=== PATIENT | female | born 1995 | race Caucasian/White ===

== ENCOUNTER 2016-07-14 16:07 | Emergency (ER) | payer MEDICAID ==
[2016-07-14 16:37] LABS: BILIRUBIN,URINE NEGATIVE (NEGATIVE); PH,URINE 6.5 PH (5.0-7.5)
[2016-07-14 16:41] LABS: UA w/ MICROSCOPIC CHARGE YES
[2016-07-14 16:44] LABS: UR CULTURE IF IND INDICATED
--- NOTE | 2016-07-14 17:16 | ED Physician Documentation ---
History of Present Illness - Stated complaint Stated Complaint: FEMALE - Chief complaint Chief Complaint: General - Additonal information Additional information: hx from pt 21 f not preg LMP now dysuria no dc mild ext [place]chig some low back pain below CVA region NV yesterday no fever Review of Systems Constitutional: denies: Fever GI: reports: Abdominal Pain, Nausea, Vomiting : reports: Dysuria, LMP (now). denies: Now EGA Immunocompromised: denies: Immunocompromised PD PAST MEDICAL HISTORY - Past Surgical History Past Surgical History: No - Present Medications Home Medications: Ambulatory Orders Medication Instructions Recorded Confirmed Cephalexin [Keflex] 500 mg PO Q6H #28 capsule 07/14/16 Phenazopyridine [Pyridium] 100 mg PO Q8H PRN #9 tablet 07/14/16 - Allergies Allergies/Adverse Reactions: Allergies Allergy/AdvReac Type Severity Reaction Status Date / Time codeine Allergy Hives Verified 07/14/16 16:30 - Social History Does the pt smoke?: No Smoking Status: Never smoker Does the pt drink ETOH?: No Does the pt have substance abuse?: No - Immunizations Immunizations are current?: Yes - POLST Patient has POLST: No PD ED PE NORMAL - Vitals Vital signs reviewed: Yes - Cardiac Cardiac: RRR - Respiratory Respiratory: No respiratory distress, Clear bilaterally - Abdomen Abdomen: Soft, Other (low abd TTP suprapubic and LLQ more than RLQ no rebound or guarding) - Female Female : Other (external - no yeast) - Back Back: No CVA TTP Results - Vitals Vitals: Vital Signs - 24 hr 07/14/16 16:15 Temperature 36.8 C Heart Rate 66 Respiratory 16 Rate Blood Pressure 130/67 O2 Saturation 96 Oxygen O2 Source Room air - Labs Labs: Laboratory Tests 07/14/16 16:20 Urine Color STRAW Urine Clarity CLEAR Urine pH 6.5 Ur Specific [place] <=1.005 Urine Protein NEGATIVE Urine Glucose (UA) NEGATIVE Urine Ketones NEGATIVE Urine Occult Blood MODERATE H Urine Nitrite NEGATIVE Urine Bilirubin NEGATIVE Urine Urobilinogen 0.2 (NORMAL) Ur Leukocyte Esterase SMALL H Urine RBC 0-5 Urine WBC 6-10 H Ur Squamous Epith Cells FEW Squamous Urine Bacteria Rare Ur Microscopic Review INDICATED Urine Culture Comments INDICATED Departure - Departure Disposition: 01 Home, Self Care Clinical Impression: Urinary tract infection Qualifiers: Urinary tract infection type: acute cystitis Hematuria presence: with hematuria Qualified Code(s): N30.01 - Acute cystitis with hematuria Condition: Good Instructions: ED UTI Cystitis Female Prescriptions: Cephalexin [Keflex] 500 mg PO Q6H #28 capsule Phenazopyridine [Pyridium] 100 mg PO Q8H PRN #9 tablet PRN Reason: painful urination Comments: Follow up with your PMD for a repeat urine test after completing antibiotics The ER will call you if the culture results indicate a need to change antibiotics Return if worse
[2016-07-14 17:25] VITALS: BP 118/70
[2016-07-14 17:38] LABS: HCG UR QUAL NEGATIVE
== END 2016-07-14 17:25 | disposition home or self-care (01) ==
LOC: ED 16:07
DX: N30.01 Acute cystitis with hematuria (principal)
CPT/HCPCS: 81001; 81003; 81025; 87077; 87086; 99283